=== PATIENT | male | born 1955 | race Caucasian/White ===

== ENCOUNTER 2018-11-14 13:18 | Emergency (ER) | payer MEDICAID ==
[~2018-11-14] VITALS: Ht 170.2 cm; Wt 69.0 kg
[2018-11-14 16:43] VITALS: BP 118/68
[2018-11-15] MEDS ORDERED: QUET100T33 MT (17:01)
[2018-11-15] MEDS ORDERED: OXYC-662 MT (17:01)
[2018-11-15] MEDS ORDERED: QUET200T MT (17:01)
[2018-11-15] MEDS ORDERED: GABA-529 PO (17:01)
== END 2018-11-14 16:44 | disposition home or self-care (01) ==
LOC: ER 13:33
DX: R18.8 Other ascites (principal); Z87.891 Personal history of nicotine dependence; Z98.890 Other specified postprocedural states; Z88.0 Allergy status to penicillin
CPT/HCPCS: 99283

== ENCOUNTER 2018-11-15 08:59 | Inpatient (IN) | payer MEDICAID ==
[~2018-11-15] VITALS: Ht 170.2 cm; Wt 66.7 kg
[2018-11-15] MEDS ORDERED: FENTANYL CITRATE/PF 50MCG/ML 2ML VIAL IV ONE (11:15)
[2018-11-15 11:22] LABS: BASOPHILS % 0.9 % (0.0-2.0); EOSINOPHILS % 3.3 % (0.0-5.0); HEMATOCRIT. 23.8 % (42.0-52.0); HEMOGLOBIN. 7.8 g/dL (14.0-18.0); LYMPHOCYTES % 12.3 % (20.0-50.0); MEAN CORPUSCULAR HEMOGLOBIN 26.3 pg (28.0-32.0); MEAN CORPUSCULAR VOLUME 80.1 fL (80.0-94.0); MEAN PLATELET VOLUME 7.9 fl (7.4-10.4); MONOCYTES % 7.7 % (2.0-8.0); NEUTROPHILS % 75.8 % (40.0-76.0); PLATELET 141 x1000/uL (130-400); RED BLOOD CELL COUNT 2.97 mill/uL (4.7-6.1); RED CELL DISTRIBUTION WIDTH 19.1 % (11.6-14.6)
[2018-11-15 11:25] LABS: CHLORIDE 110 mEq/L (98-107)
[2018-11-15 11:29] LABS: INR 1.2; PROTHROMBIN TIME 12.2 sec (9.1-11.1)
[2018-11-15 13:55] VITALS: BP 157/63
[2018-11-15] MEDS ORDERED: ACETAMINOPHEN 325MG TABLET PO PRN (15:00)
[2018-11-15] MEDS ORDERED: ONDANSETRON HCL 4MG/2ML INJ IV PRN (15:00)
[2018-11-15 15:38] LABS: TOTAL IRON BINDING CAPACITY 193 ug/dL (250-450)
[2018-11-15 16:00] VITALS: BP 157/63
[2018-11-15] MEDS ORDERED: GABA-529 PO (17:01)
[2018-11-15] MEDS ORDERED: OXYC-662 MT (17:01)
[2018-11-15] MEDS ORDERED: QUET100T33 MT (17:01)
[2018-11-15] MEDS ORDERED: QUET200T MT (17:01)
[2018-11-15 20:00] VITALS: BP 100/59
[2018-11-15] MEDS: HYDROCODONE/ACETAMINOPHEN 5/325MG TABLET PO PRN (20:17)
[2018-11-16] VITALS: BP 100/63
[2018-11-16] MEDS: HYDROCODONE/ACETAMINOPHEN 5/325MG TABLET PO PRN ×2 (01:55→08:01)
[2018-11-16 08:50] VITALS: BP 119/68
[2018-11-16] MEDS ORDERED: SODIUM BICARBONATE 4% (2.4MEQ) 5ML VIAL IV ONE (10:10)
[2018-11-16] MEDS ORDERED: LIDOCAINE HCL 1% 20ML VIAL (Pyxis) INJ ONE (10:10)
[2018-11-16] MEDS ORDERED: SPIRONOLACTONE 50MG TABLET PO SCH (11:15)
[2018-11-16 12:07] VITALS: BP 119/67
[2018-11-16] MEDS ORDERED: HYDROCODONE/ACETAMINOPHEN 5/325MG TABLET PO PRN (14:15)
[2018-11-16 14:42] VITALS: BP 120/72
[2018-11-16] MEDS ORDERED: FUROSEMIDE 40MG TABLET PO SCH (21:00)
== END 2018-11-16 17:18 | disposition home or self-care (01) | DRG 280 ==
LOC: ER 08:59 → 6EST 12:01 → EDBEDREQTM 12:03 → EDBEDREQSVC 12:03 → EDBEDREQ 12:03 → CANRESERV 13:25 → ENRESERV 13:25 → ER 14:02
PROVIDERS: ADMIT Internal Medicine; ATTEND Internal Medicine
PROC: 0W9G3ZZ Drainage of Peritoneal Cavity, Percutaneous Approach (ICD-10-PCS; principal; 2018-11-16)
DX: K70.31 Alcoholic cirrhosis of liver with ascites (principal); E43 Unspecified severe protein-calorie malnutrition; E87.8 Other disorders of electrolyte and fluid balance, not elsewhere classified; D64.9 Anemia, unspecified; D72.819 Decreased white blood cell count, unspecified; Z88.0 Allergy status to penicillin
CPT/HCPCS: 36415; 49083; 82728; 83540; 83550; 93005; 96374; 99285; J3010; J3490